=== PATIENT | female | born 1975 | race Caucasian/White ===

== ENCOUNTER 2016-08-20 09:33 | Emergency (ER) | payer MEDICAID, OTHER ==
[~2016-08-20] VITALS: Wt 90.0 kg
[2016-08-20] MEDS ORDERED: ALBUTEROL 0.5% (NEB) 2.5 MG/0.5 ML AMP HHN STA (10:31)
[2016-08-20] MEDS ORDERED: KETOROLAC 60 MG INJ IM STA (10:33)
[2016-08-20 10:43] LABS: URINE BLOOD (Dip) POC 3+ (NEGATIVE)
[2016-08-20] MEDS ORDERED: METHYLPREDNISOLONE 125 MG INJ IM ONE (11:00)
[2016-08-20] MEDS ORDERED: IPRATROPIUM (NEB) 0.5 MG/2.5 ML AMP HHN ONE (11:00)
[2016-08-20] MEDS ORDERED: HYDROCODONE/APAP (5/325) TAB PO ONE (11:00)
[2016-08-20] MEDS ORDERED: TRAM50TA2 PO (11:27)
[2016-08-20] MEDS ORDERED: CYCL-319 PO (11:27)
[2016-08-20] MEDS ORDERED: PRED20TA PO (11:27)
--- NOTE | 2016-08-20 11:36 | ERD ---
ER Documentation Chief Complaint Date/Time DATE: 08/20/16 TIME: 11:34 Chief Complaint LOW BACKPAIN RADIAITING TO RIGHT LEG. NO DISTRESS NOTED. HPI This 40-year-old female complains of low back pain for last 3 days. It is in the L4-L5 area rating to her bilateral buttocks patient has a fall or inciting event such as lifting. She has a history of sciatica and it feels similar. She is taking ibuprofen at home. She denies any urinary complaints, fevers, vomiting, weakness or bowel or bladder incontinence. ROS All systems reviewed and are negative except as per history of present illness. Medications Home Meds Active Scripts Prednisone* (Prednisone*) 20 Mg Tab, 40 MG PO DAILY for 4 Days, TAB Prov:BRITNEY JEROME MD 08/20/16 Cyclobenzaprine Hcl* (Cyclobenzaprine Hcl*) 10 Mg Tablet, 10 MG PO TID, #15 TAB Prov:BRITNEY JEROME MD 08/20/16 Tramadol HCl (Tramadol HCl) 50 Mg Tablet, 50 MG PO Q4 Y for PAIN, #20 TAB Prov:BRITNEY JEROME MD 08/20/16 Allergies Allergies: Coded Allergies: No Known Allergy (Unverified , 08/20/16) Physical Exam Vitals Vital Signs Date Time Temp Pulse Resp B/P Pulse Ox O2 Delivery O2 Flow Rate FiO2 08/20/16 09:38 98.7 90 21 163/91 98 Physical Exam Const: [] Alert, [id number]. Head: Atraumatic Eyes: Normal Conjunctiva ENT: Normal External Ears, Nose and Mouth. Neck: Full range of motion..~ No meningismus. Resp: Clear to auscultation bilaterally Cardio: Regular rate and rhythm, no murmurs Abd: Soft, non tender, non distended. Normal bowel sounds Skin: No petechiae or rashes Back: No midline or flank tenderness there is some tenderness in L4-L5 paraspinous muscles without midline tenderness or deformities. There is no significant flank tenderness appreciated patient is amatory with discomfort but without deficits or weakness. Ext: No cyanosis, or edema Neur: Awake and alert Psych: Normal Mood and Affect Results 24 hrs Laboratory Tests Test 08/20/16 10:45 Bedside Urine Blood 3+ Bedside Urine Glucose (UA) Negative Bedside Urine Ketones (LAB) Negative Bedside Urine Leukocyte Esterase (L 1+ Bedside Urine Nitrite (LAB) Negative Bedside Urine Protein (LAB) Negative Bedside Urine pH (LAB) 6.5 Current Medications Medications (Trade) Dose Ordered Sig/Mary Route PRN Reason Start Time Stop Time Status Last Admin Dose Admin Methylprednisolone Sodium Succinate (Solu-Medrol) 125 mg ONCE ONCE IM 08/20/16 11:00 08/20/16 11:00 DC Albuterol (Proventil 0.5% (Neb)) 5 mg ONCE STAT HHN 08/20/16 10:31 08/20/16 10:33 DC Ipratropium [place] (Atrovent 0.02% (Neb)) 0.5 mg ONCE ONCE HHN 08/20/16 11:00 08/20/16 11:00 DC Ketorolac Tromethamine (Toradol) 60 mg ONCE STAT IM 08/20/16 10:33 08/20/16 10:47 DC 08/20/16 10:41 Acetaminophen/ Hydrocodone Bitart ([place] (5/325)) 1 tab ONCE ONCE PO 08/20/16 11:00 08/20/16 11:01 DC 08/20/16 10:42 Procedures/MDM Patient presents with low back pain and signs of sciatica bilaterally. Urine shows 1+ leukocytes but I doubt this because of pain. Patient will be nonetheless treated with Keflex. Patient was given Toradol 60 mg IM [place] 5 mg by mouth. Patient was discharged home the course of tramadol, Flexeril and a short course of prednisone. X-rays deferred given absence of trauma and previous history of sciatica. Patient will be discharged home with back exercise instructions, instructed to return for fevers, vomiting, new or worsening symptoms with primary care doctor this week. there is no evidence of fracture, dislocation, epidural abscess, neurologic deficit or other causes of low back pain currently. Departure Diagnosis: Primary Impression: UTI (urinary tract infection) Urinary tract infection type: acute cystitis Hematuria presence: without hematuria Qualified Code: N30.00 - Acute cystitis without hematuria Additional Impression: Back pain Back pain location: low back pain Chronicity: acute Back pain laterality: right Sciatica presence: with sciatica Sciatica laterality: bilateral sciatica Qualified Code: M54.42 - Acute right-sided low back pain with bilateral sciatica Condition: Stable Patient Instructions: Understanding Urinary Tract Infections (UTIs), Back Exercises, Lumbar, Back Pain W/ Sciatica Additional Instructions: hay poquito infeccion en orina, dhiraj dolor probablamente sciatica. Cheque otro vez con [place] doctor primario en el proximo [place] or regresa para mas o nueva simptomas- fiebre, vomito. BRITNEY JEROME MD Aug 20, 2016 11:35
[2016-08-20 12:23] VITALS: BP 141/82; PULSE 78; RESP 20; TEMP 98.6
[2016-08-20] MEDS ORDERED: CEPH-443 PO (12:24)
== END 2016-08-20 12:26 | disposition home or self-care (01) ==
LOC: FTE 09:33
DX: N30.00 Acute cystitis without hematuria (principal); M54.42 Lumbago with sciatica, left side
CPT/HCPCS: 81003; 96372; J1885; Z7502; Z7610

== ENCOUNTER 2016-09-29 16:36 | Inpatient (IN) | END 2016-10-02 13:10 | disposition home or self-care (01) | DRG 690 | DX: N10 Acute pyelonephritis (principal); B96.20 Unspecified Escherichia coli [E. coli] as the cause of diseases classified elsewhere; R11.2 Nausea with vomiting, unspecified; Z16.12 Extended spectrum beta lactamase (ESBL) resistance; E66.9 Obesity, unspecified; Z68.36 Body mass index [BMI] 36.0-36.9, adult; E86.1 Hypovolemia; E86.0 Dehydration ==